=== PATIENT | male | born 1950 | race Caucasian/White ===

== ENCOUNTER 2023-09-28 06:10 | Day surgery (SDC) | payer OTHER ==
[2023-09-28] VITALS (12 sets, daily range): BP systolic 121–160; BP diastolic 65–92
[~2023-09-28] VITALS: Ht 175.3 cm; Wt 115.6 kg
[~2023-09-28 06:10] MED LIST: CAL MAG ZINC +1 EACH PO; CELE100 PO; Clonazepam0.5 MG PO; FENO160 PO; KRILL OIL500 MG PO; LYRICA PO; META800 PO; ONE DAILY FOR1 EAC1 PO; OXYC10TA19 PO; Prilosec Otc20 MG PO
[2023-09-28] MEDS ORDERED: CeFAZolin Sodium 2,000 MG in NS 50 ML IV SCH (06:25)
[2023-09-28] MEDS ORDERED: Lactated Ringer's 1,000 ML IV SCH (06:25)
[2023-09-28] MEDS ORDERED: CeFAZolin Sodium 2,000 MG VIAL ONE (06:36)
[2023-09-28] MEDS ORDERED: propofoL 20 ML IV ONE (06:53)
[2023-09-28] MEDS ORDERED: Dexamethasone Sod Phos 10 MG/ML 1ML VIAL ONE (06:53)
[2023-09-28] MEDS ORDERED: FentaNYL Citrate 50 MCG/ML 2 ML Injection ONE ×2 (06:53→09:45)
[2023-09-28] MEDS ORDERED: Rocuronium Bromide 10 MG/ML 5ML Injection IV ONE ×2 (06:53→08:36)
[2023-09-28] MEDS ORDERED: Ondansetron HCl 2 MG / ML 2ML Vial ONE (06:53)
[2023-09-28] MEDS ORDERED: Lidocaine HCl 2% 20 ML MDV ONE (06:53)
[2023-09-28] MEDS ORDERED: Sugammadex Sodium 200 MG/2ML SDV (100 MG/ML) ONE (06:53)
--- NOTE | 2023-09-28 07:01 | NUR ---
Ambulatory in Day Surgery History, Chart, Medications and Allergies reviewed before start of procedure. Pre-Op teaching done. Pt verbalizes understanding. Patient States Post-Procedure ride home has been arranged.
[2023-09-28] MEDS ORDERED: Bupivacaine 0.5% HCl 5 MG/ML 30MLVIAL INJ ONE (07:53)
[2023-09-28] MEDS ORDERED: FentaNYL Citrate 50 MCG/ML 2 ML Injection IV PRN ×3 (08:10→08:15)
[2023-09-28] MEDS ORDERED: HYDROmorphone HCl/Pf 1MG SYR IV PRN (08:10)
[2023-09-28] MEDS ORDERED: Ondansetron HCl 2 MG / ML 2ML Vial IV PRN (08:15)
--- NOTE | 2023-09-28 08:22 | NUR ---
09/28/23 0822 Eslie Mack PRIOR TO PREPPING PATIENTS SKIN, NOTED NICKEL SIZED RED ULCERATED WOUND PRESENT NEAR THE UMBILICUS. NOTIFIED. WOUND COVERED WITH IOBAN PRIOR TO SURGERY START.
--- NOTE | 2023-09-28 09:48 | NUR ---
DR LEDEZMA AWARE OF CODEINE ALLERGY AND STATES OK TO ORDER PERCOCET
[2023-09-28] MEDS ORDERED: OxyCODONE 5 mg/Acetamin 325 mg TABLET PO PRN (09:50)
--- NOTE | 2023-09-28 10:20 | NUR ---
1008 REPORT RECEIVED FROM DUNIA SALCEDO. VSS. PT ALERT AND ORIENTED. PT SATTING AT 92-93% ON 2L SUPPLEMENTAL O2 VIA NC. PT ABLE TO REPOSITION SELF IN BED. PT REQUESTING PO FOOD AND FLUIDS AND TOLERATING THEM WELL. PT REPORTS 5/10 ACHING PAIN TO ABDOMEN. PT DENIES NAUSEA OR OTHER DISCOMFORTS AT THIS TIME. PT HAS 3 INCISION SITES THAT ARE DRESSED WITH EXOFEN THAT ARE C/D/I WITHOUT DRAINAGE, REDNESS OR SWELLING. PT ALSO HAS A FOURTH DRESSING WITH GAUZE AND TEGADERM THAT IS C/D/I WITHOUT DRAINAGE, REDNESS OR SWELLING.
--- NOTE | 2023-09-28 11:04 | NUR ---
Patient up to Ambulate independently. Gait STEADY. VSS AND CONSISTENT WITH PT BASELINE. PT OFF OF SUPPLEMENTAL O2 AND SATTING AT 94%. PT INSTRUCTED TO DO DEEP BREATHING AND COUGHING AT HOME. INCENTIVE SPIROMETER ALSO SENT HOME WITH PT. PT AND INSTRUCTED HOW TO COMPLETE THESE TECHNIQUES AND THEY VERBALIZE UNDERSTANDING. Discharge instructions reviewed with patient AND PT . Patient AND HIS verbalize understanding. Copy given to patient to take home. Dressing to procedure site clean, dry, intact with no visible drainage, swelling, erythema or bruising noted. Patient States Post-Procedure ride home has been arranged. Discharged via wheelchair to private car for ride home. PT BELONGINGS RETURNED TO PT.
== END 2023-09-28 11:14 | disposition home or self-care (01) ==
LOC: ORSCMMR 06:10 → ORD 15:00 → ORSCMMR 15:00
PROVIDERS: Surgery
PROC: 0WUF4JZ Supplement Abdominal Wall with Synthetic Substitute, Percutaneous Endoscopic Approach (ICD-10-PCS; principal; 2023-09-28 07:30)
PROC: 8E0W4CZ Robotic Assisted Procedure of Trunk Region, Percutaneous Endoscopic Approach (ICD-10-PCS; principal; 2023-09-28 07:30)
DX: K42.0 Umbilical hernia with obstruction, without gangrene (principal); M62.08 Separation of muscle (nontraumatic), other site; K21.9 Gastro-esophageal reflux disease without esophagitis; F41.9 Anxiety disorder, unspecified; E66.9 Obesity, unspecified; Z68.37 Body mass index [BMI] 37.0-37.9, adult; N40.0 Benign prostatic hyperplasia without lower urinary tract symptoms
CPT/HCPCS: A9270; C1781; J0690; J1100; J2405; J2704; J3010; J7120